=== PATIENT | female | born 2000 | race Caucasian/White ===

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

== ENCOUNTER 2019-04-01 10:56 | Emergency (ER) | payer OTHER ==
[2019-04-01] MEDS ORDERED: Ibuprofen TAB* 600 MG PO ONE (11:10)
--- NOTE | 2019-04-01 11:10 | ED ---
Complex/Multi-Sys Presentation - HPI Summary HPI Summary: This patient is a 18 year old female presenting to [facility] with a chief complaint of fatigue and chest wall tenderness. She states she had a positive flu test 2 days ago and she states she had the same symptoms when she was recommended to get a CXR but chose not to at the time because she was feeling better. She states her symptoms have gotten worse and would now like a CXR. She states she has the rib pain when taking a deep breath. She was started on Tamiflu once diagnosed. She reports SOB and cough. Medications reviewed, allergies noted. - History Of Current Complaint Chief Complaint: EDFluSymptoms Time Seen by Provider: 04/01/19 11:02 Hx Obtained From: Patient Onset/Duration: Lasting Days Timing: Constant - Allergies/Home Medications Allergies/Adverse Reactions: Allergies Allergy/AdvReac Type Severity Reaction Status Date / Time No Known Allergies Allergy Verified 04/01/19 11:01 PMH/Surg Hx/FS Hx/Imm Hx Endocrine/Hematology History: Denies: Hx Diabetes Cardiovascular History: Denies: Hx Coronary Artery Disease Infectious Disease History: No Infectious Disease History: Reports: Traveled Outside the [place] in Last 30 Days - [place] - Family History Known Family History: Negative: Respiratory Disease - Social History Occupation: Student Alcohol Use: Occasionally Hx Substance Use: No Review of Systems Positive: Fatigue Positive: Chest Pain - Chest wall pain Positive: Shortness Of Breath, Cough All Other Systems Reviewed And Are Negative: Yes Physical Exam - Summary Physical Exam Summary: Constitutional: Well-developed, Well-nourished, Alert. (-) Distressed Skin: Warm, Dry HENT: Normocephalic; Atraumatic. Nasal congestion. Eyes: Conjunctiva normal Neck: Musculoskeletal ROM normal neck. (-) JVD, (-) Stridor, (-) Tracheal deviation Cardio: Rhythm regular, borderline tachycardic, Heart sounds normal; Intact distal pulses; Radial pulses are 2+ and symmetric. (-) Murmur Pulmonary/Chest wall: Effort normal. (-) Respiratory distress, (-) Wheezes, (-) Rales Abd: Soft, (-) tenderness, (-) Distension, (-) Guarding, (-) Rebound Musculoskeletal: (-) Edema Lymph: (-) Cervical adenopathy Neuro: Alert, Oriented x3 Psych: Mood and affect Normal Triage Information Reviewed: Yes Vital Signs On Initial Exam: Initial Vitals Temp Pulse Resp BP Pulse Ox 99.8 F 97 18 135/87 98 04/01/19 10:58 04/01/19 10:58 04/01/19 10:58 04/01/19 10:58 04/01/19 10:58 Vital Signs Reviewed: Yes Procedures - Sedation Patient Received Moderate/Deep Sedation with Procedure: No Diagnostics - Vital Signs Vital Signs Temp Pulse Resp BP Pulse Ox 04/01/19 10:58 99.8 F 97 18 135/87 98 - Laboratory Lab Statement: Any lab studies that have been ordered have been reviewed, and results considered in the medical decision making process. - Radiology CXR Radiology Interpretation Completed By: Radiologist Summary of Radiographic Findings: No active cardiopulmonary disease. ED Provider has reviewed this report. Complex Multi-Symp Course/Dx Course Of Treatment: Patient is here shortness of breath after being diagnosed with flu 2 days ago. Patient's overall well appearing and speaking in full sentences not in any acute respiratory distress. Patient had chest x-ray which showed no abnormality. Patient did not need any further testing for an emergent condition - Diagnoses Provider Diagnoses: Influenza, Cough, SOB (shortness of breath) Discharge ED - Sign-Out/Discharge Documenting (check all that apply): Patient Departure - Discharge - Discharge Plan Condition: Stable Disposition: HOME Patient Education Materials: Influenza (ED) Referrals: [facility] [Outside] Additional Instructions: Continue taking your Tamiflu. Take Motrin 600 mg and Tylenol 1000 mg every 6 hours for pain or fever. Return with worsened SOB, high fevers, or any concerning symptoms. - Billing Disposition and Condition Condition: STABLE Disposition: Home - Attestation Statements Document Initiated by Benjamin: Yes Documenting Scribe: James Ahumada Provider For Whom Benjamin is Documenting (Include Credential): Terrence Goodwin MD Scribe Attestation: James Lewis, scribed for Terrence Goodwin MD on 04/01/19 at 1852. Scribe Documentation Reviewed: Yes Provider Attestation: The documentation as recorded by the James amezcua accurately reflects the service I personally performed and the decisions made by me, Terrence Goodwin MD Status of Scribe Document: Viewed
[2019-04-01 12:02] VITALS: BP 129/76
== END 2019-04-01 12:01 | disposition home or self-care (01) ==
LOC: ED 10:56
DX: J11.1 Influenza due to unidentified influenza virus with other respiratory manifestations (principal)
CPT/HCPCS: 71046; 99282; A9270-GY